=== PATIENT | male | born 1945 ===

== ENCOUNTER → 2017-08-21 | Day surgery (SDC) | payer MEDICARE, MEDICAID ==
[2017-08-13 09:46] VITALS: BMI 23.8
[~2017-08-21] MED LIST: Iodixanol 320 MG/ML 100 ML BOTTLE IV ONE; Iodixanol 320 MG/ML 200 ML BOTTLE IV ONE; Iohexol 350mgl/ml 50 ML ONE; Lidocaine 2% Inj (20ml) ONE; Midazolam 2 MG/2 ML VIAL ONE; Nitroglycerin 50mg in D5W 0 MG/0 ML BOTTLE IV ONE; Phenylephrine 10 mg/ml Inj ONE; Sodium Chloride 0.9% 1,000 ML IV SCH
[2017-08-21 06:56] LABS: BASO # 0.03 K/mm3 (0.0-2.0); BASO % 0.6 % (0.0-3.0); EOS # 0.2 (0.0-0.7); EOS % 3.2 % (1.5-5.0); GRAN # 1.96 (1.4-6.5); GRAN % 41.5 % (50.0-68.0); HEMOGLOBIN 13.6 g/dL (14.0-18.0); LYMPH # 2.1 (1.2-3.4); MEAN CELL VOLUME 70.3 fl (80.0-105.0); MEAN CORPUSCULAR HEMOGLOBIN 22.9 pg (25.0-35.0); MEAN CORPUSCULAR HGB CONC 32.6 g/dl (31.0-37.0); MEAN PLATELET VOLUME 9.7 fl (7.0-11.0); MONO # 0.5 (0.1-0.6); MONO % 9.7 % (1.0-6.0); RBC 5.93 10^6/uL (3.5-6.1); WHITE BLOOD COUNT 4.7 10^3/ul (4.5-11.0)
[2017-08-21 07:00] LABS: BLOOD UREA NITROGEN 15 mg/dL (7-21); CALCIUM 9.7 mg/dL (8.4-10.5); GFR AFRICAN-AMERICAN > 60; GFR NON-AFRICAN AMERICAN > 60
[2017-08-21 07:12] VITALS: RESP 18
[2017-08-21 07:17] LABS: INR 0.99 (0.93-1.08); PARTIAL THROMBOPLASTIN TIME 32.5 Seconds (25.1-36.5); PROTHROMBIN TIME 11.4 SECONDS (9.4-12.5)
[2017-08-21 09:08] VITALS: TEMP 97.2
--- NOTE | 2017-08-21 09:14 | CARDCATH ---
PROCEDURE DATE: 08/21/2017 CARDIAC CATHETERIZATION HISTORY: The patient is a 72-year-old male who presents with chest pain. His cardiac risk factors include hypertension, diabetes mellitus, hypercholesterolemia. Stress test was abnormal. Because of this, cardiac catheterization was recommended. PROCEDURE: Left heart catheterization with coronary arteriography with left ventriculogram. The right femoral artery was cannulated with a 6-[place]izen [place] sheath. There were no complications. I performed moderate sedation which included the presence of an independent trained observer that assisted in monitoring the patient's level of consciousness and physiologic status. After administration of Versed and fentanyl, my intra-service time was 15 minutes. The findings on catheterization revealed a left ventricle that contracted normally. Estimated ejection fraction of 60%. The patient had a right dominant circulation. The RCA revealed diffuse atherosclerosis without critical lesions. The left main artery was unremarkable. The LAD and diagonal vessels revealed intimal irregularities without significant stenosis. The circumflex artery revealed a proximal eccentric 60% stenosis in its proximal portion. No intervention was necessary. Angio-Seal was used to close the femoral artery site. The patient tolerated the procedure well. In summary, the procedure revealed a single vessel eccentric 60% stenosis in the proximal circumflex artery. There was diffuse atherosclerosis throughout the coronary tree. LV function is normal. Given these findings, the patient will need to remain on aspirin indefinitely and undergo a strict cardiac risk reduction program which needs to include statin therapy. Rojas Amado MD
--- NOTE | 2017-08-21 09:31 | CARD ---
APPROVED REPORT EKG Measurement Heart [id number] <Conclusion> Sinus bradycardia Otherwise normal ECG
[2017-08-21 11:37] VITALS: O2SAT 99
[2017-08-21 13:02] VITALS: BP 119/74; PULSE 62
== END | disposition home or self-care (01) ==
LOC: CATH 06:07
PROVIDERS: ATTEND Internal Medicine Cardiovascular Disease
DX: I25.10 Atherosclerotic heart disease of native coronary artery without angina pectoris (principal); I10 Essential (primary) hypertension; E78.00 Pure hypercholesterolemia, unspecified; E11.9 Type 2 diabetes mellitus without complications; Z79.84 Long term (current) use of oral hypoglycemic drugs